=== PATIENT | female | born 1985 | race American Indian/Alaskan Native ===

== ENCOUNTER 2018-02-06 14:41 | Outpatient (CLI) | payer MEDICAID ==
[2018-02-06 16:06] LABS: Bilirubin,Urine NEG (Negative); Blood,Urine NEG (Negative); Color,Urine Yellow (Yellow); Mucus,Urine 3+ /HPF; Urobilinogen,Urine < 2.0 mg/dL (<2.0)
[2018-02-06 16:07] VITALS: BP 124/65
[2018-02-06 16:08] LABS: Hematocrit 33.6 % (30.3-42.9); Hemoglobin 11.4 gm/dl (10.1-14.3); Mean Corpuscular HGB Conc 34 % (30-34); Mean Corpuscular Hemoglobin 29 pg (28-32); Mean Corpuscular Volume 87 fl (79-97); Platelet Count 299 K/mm3 (140-440); Red Blood Count 3.88 M/mm3 (3.65-5.03); Red Cell Distribution Width 14.1 % (13.2-15.2)
[2018-02-06 18:25] LABS: Alanine Aminotransferase 12 units/L (7-56)
== END 2018-02-06 16:16 | disposition home or self-care (01) ==
LOC: TRG 14:41
PROVIDERS: ATTEND Obstetrics & Gynecology
DX: O47.1 False labor at or after 37 completed weeks of gestation (principal); O99.513 Diseases of the respiratory system complicating pregnancy, third trimester; O99.213 Obesity complicating pregnancy, third trimester; J45.909 Unspecified asthma, uncomplicated; Z3A.38 38 weeks gestation of pregnancy; F17.210 Nicotine dependence, cigarettes, uncomplicated; Z91.018 Allergy to other foods
CPT/HCPCS: 36415; 59025; 81001; 82565; 83615; 84450; 84460; 84550; 85027

== ENCOUNTER 2018-02-08 12:56 | Outpatient (CLI) | payer MEDICAID ==
[2018-02-08 14:24] VITALS: BP 155/74
== END 2018-02-08 14:44 | disposition home or self-care (01) ==
LOC: TRG 12:56
PROVIDERS: ATTEND Obstetrics & Gynecology
DX: O47.1 False labor at or after 37 completed weeks of gestation (principal); Z3A.38 38 weeks gestation of pregnancy
CPT/HCPCS: 59025

== ENCOUNTER 2018-02-08 23:54 | Inpatient (IN) | payer MEDICAID ==
[2018-02-09] MEDS ORDERED: STADOL IV PRN (00:43)
[2018-02-09] MEDS ORDERED: PITOCin/NS 20 UNIT/1000ML DRIP 20 UNITS/1,000 ML BAG IV SCH ×2 (01:00→19:51)
[2018-02-09 01:17] LABS: Hematocrit 34.2 % (30.3-42.9); Hemoglobin 11.7 gm/dl (10.1-14.3); Mean Corpuscular HGB Conc 34 % (30-34); Mean Corpuscular Hemoglobin 29 pg (28-32); Mean Corpuscular Volume 85 fl (79-97); Platelet Count 288 K/mm3 (140-440); Red Blood Count 4.02 M/mm3 (3.65-5.03); Red Cell Distribution Width 14.2 % (13.2-15.2)
[2018-02-09] MEDS: SUBLIMAZE IV PRN ×2 (01:22→03:48)
[2018-02-09] MEDS: LACTATED RINGERS 1,000 ML IV SCH ×4 (01:24→09:30)
[2018-02-09] MEDS ORDERED: APRESOLINE IV ONE ×2 (02:00→18:00)
--- NOTE | 2018-02-09 04:52 | History and Physical Report ---
History of Present Illness Date of examination: 02/09/18 Date of admission: 02/09/18 01:08 Chief complaint: I'm having contractions History of present illness: Patient is a 32 year old who presents tonight in active labor with dilation to 5cm. Patient has had an uncomplicated course except for chronic hypertension. She is GBS negative. She has had 2 previous c-sections and 2 successful vbacs. Past History Past Medical History: hypertension Past Surgical History: section Family/Genetic History: heart disease, hypertension Social history: - Obstetrical History Expected Date of Delivery: 02/14/18 Actual Gestation: 39 Week(s) 2 Day(s) : 5 Para: 4 Number of Living Children: 4 Medications and Allergies Allergies Allergy/AdvReac Type Severity Reaction Status Date / Time apple Allergy Severe Swelling Verified 02/08/18 13:03 Androgenic Anabolic Steroid Allergy Anaphylaxis Verified 03/31/15 06:43 Home Medications Medication Instructions Recorded Confirmed Last Taken Type Plus Tablet 1 tab PO DAILY 04/01/15 02/09/18 02/09/18 History Acetaminophen/Diphenhydramine 1 each PO PRN 02/09/18 02/09/18 02/08/18 22:00 History [Tylenol Pm Ex-Strength Caplet] Active Meds: Active Medications Butorphanol Tartrate (Stadol) 2 mg IV Q2H PRN PRN Reason: Labor Pain Fentanyl (Sublimaze) 100 mcg IV Q2H PRN PRN Reason: Labor Pain Last Admin: 02/09/18 03:48 Dose: 100 mcg Lactated Ringer's (Lactated Ringers) 1,000 mls @ 125 mls/hr IV DIRECT SHEYLA Last Admin: 02/09/18 01:24 Dose: 125 mls/hr Oxytocin/Sodium Chloride (Pitocin/Ns 20 Unit/1000ml Drip) 20 units in 1,000 mls @ 125 mls/hr IV DIRECT SHEYLA Review of Systems All systems: negative Genitourinary: contractions - Vital Signs Vital signs: Vital Signs Pulse Pulse Ox 88 97 02/09/18 00:14 02/09/18 00:14 Temp Pulse Resp BP Pulse Ox 98.2 F 85 18 179/81 98 02/09/18 01:07 02/09/18 04:42 02/09/18 03:48 02/09/18 04:37 02/09/18 04:42 - Physical Exam Breasts: Cardiovascular: Regular rate, Normal S1, Normal S2 Lungs: Positive: Clear to auscultation, Normal air movement Abdomen: Positive: normal appearance, soft, normal bowel sounds. Negative: distention, tenderness Vulva: both: normal Vagina: Positive: normal moisture. Negative: discharge Cervix: Negative: lesion, discharge Uterus: Positive: normal size, normal contour Adnexa: both: normal Anus/Rectum: Positive: normal perianal skin, heme negative. Negative: rectal mass, hemorrhoids Extremities: Deep Tendon Reflex Grade: Normal +2 - Obstetrical Cervical Dilatation: 5 Cervical Effacement Percentage: 90 station: -2 Uterine Contraction Pattern: Regular Uterine Tone Measurement Phase: Contraction Uterine Contraction Intensity: Moderate Results Result Diagrams: 02/09/18 00:38 Abnormal lab results 02/09/18 Range/Units 00:38 WBC 12.6 H (4.5-11.0) K/mm3 All other labs normal. Assessment and Plan IUP at 39.2 weeks in labor. Admit for same. Pt is GBS negative. Anticipate .
[2018-02-09] MEDS ORDERED: NARCAN 2 MG/2 ML IV PRN (07:26)
--- NOTE | 2018-02-09 07:26 | Anesthesia Consultation ---
Anesthesia Consult and Med Hx Date of service: 02/09/18 - Airway Anesthetic Teeth Evaluation: Good ROM Head & Neck: Adequate Mental/Hyoid Distance: Adequate Mallampati Class: Class II Intubation Access Assessment: Probably Good - Pulmonary Exam CTA: Yes - Cardiac Exam Cardiac Exam: RRR - Pre-Operative Health Status ASA Pre-Surgery Classification: ASA2 Proposed Anesthetic Plan: Epidural - Pulmonary Hx Smoking: Yes Hx Asthma: Yes (last attack months ago) COPD: No Hx Pneumonia: No - Cardiovascular System Hx Hypertension: Yes (2013) - Central Nervous System Hx Seizures: No Hx Psychiatric Problems: No - Endocrine Hx Renal Disease: No Hx End Stage Renal Disease: No Hx Hypothyroidism: No Hx Hyperthyroidism: No - Hematic Hx Anemia: Yes (In ) Hx Sickle Cell Disease: No - Other Systems Hx Alcohol Use: No Hx Obesity: Yes (morbid, BMI 43)
[2018-02-09] MEDS ORDERED: fentaNYL-BUPIV 2 MCG/ML-0.125% 200 MCG/100 ML BAG EPIDURAL SCH (08:00)
[2018-02-09] MEDS ORDERED: PITOCin/NS 30 UNIT/500ML 30 UNITS/500 ML BAG IV SCH (09:00)
[2018-02-09] MEDS ORDERED: BICITRA ONE (14:41)
[2018-02-09] MEDS ORDERED: REGLAN ONE (14:41)
[2018-02-09] MEDS ORDERED: PEPCID IV ONE (14:41)
[2018-02-09] MEDS ORDERED: WATER FOR IRRIG STERILE IR ONE (14:50)
[2018-02-09] MEDS ORDERED: NACL 0.9% IR ONE (14:50)
[2018-02-09] MEDS ORDERED: XYLOCAINE MPF 2% ONE ×4 (14:54)
[2018-02-09] MEDS ORDERED: TORADOL ONE (14:54)
[2018-02-09] MEDS ORDERED: VERSED ONE (15:47)
--- NOTE | 2018-02-09 16:26 | Procedure Note ---
OB Delivery Note - Delivery Date of Delivery: 02/09/18 Surgeon: MARINE ECKERT Estimated blood loss: other (800) - Section Preop diagnosis: repeat , arrest of dilation, nonreassuring FHR tracing Postop diagnosis: same section procedure: repeat low transverse Disposition: PACU Narrative: see op report - A at 1 minute: 1 at 5 minutes: 5 (10 minute 8) Gender: Male
--- NOTE | 2018-02-09 16:37 | Operative Report ---
Operative Report Operative Report: The operative report for patient Karli Jaquez Date of service 02/09/2019 Preoperative diagnosis: Intrauterine at 39 weeks 2. bradycardia 3. Failed Postoperative diagnosis: Same Procedure: Repeat low transverse section Surgeon: Dr. Taylor Watkins EBL: 800 mL Urine output: 200 but bloody prior to start of the procedure IV fluids: 1100 Findings: Viable male in the vertex occiput posterior position. Weight 7 lbs. 4 oz. 3299 g Apgars 2, 5 and 8. Extensive pelvic adhesions Specimens: None Complications: None Procedure: The patient was admitted to the OR with IV running and in place. She was properly identified as herself. Her spinal had been placed in the room and she was already under the effects of anesthesia upon entry into the OR. She was placed in the dorsal supine position with a leftward tilt. A Mathews catheter was inserted. She was then prepped and draped in the normal sterile fashion. An Allis test was used to confirm adequate anesthesia. Once confirmed , the incision was made with the scalpel and carried to the underlying fascia using the scalpel and the Bovie. The fascia was incised in the midline and incision was extended bilaterally using the curved Sneed scissors. The fascia was then dissected from the underlying rectus muscles in a series of sharp and blunt dissection using the Sneed scissors. Muscles were in the in the midline sharply using Metzenbaum scissors and the peritoneum was entered into bluntly using the surgeon's fingers. A bladder blade was then placed into the incision to protect the bladder. Following this the bladder flap was created. Hysterotomy incision was then made in the scalpel. Upon uterine entry, the amniotic sac was ruptured for clear fluid. The was then delivered in the occiput [posterior] position. His mouth and nose were suctioned on the field. The cord was clamped and cut and he was handed to the waiting NICU personnel. The uterus was then exteriorized and cleared of all clots and debris. The hysterotomy incision was then closed in a running locked fashion using 0 Vicryl. The abdomen was then copiously irrigated with warm normal saline. Following this the uterus was replaced into the abdominal cavity. At this point the muscles were reapproximated in the midline using individual sutures of 0 Vicryl. Following this the fascia was closed in a running fashion using 0 Vicryl. Tissue was then copiously irrigated. A retention suture was placed in the subcuticular fat. Skin was closed in a running fashion using 3-0 Monocryl. The sponge lap needle and instrument counts were correct 2. The patient tolerated the procedure well. She was taken to recovery in stable condition.
[2018-02-09] MEDS: MORPHINE IV PRN ×3 (17:29→23:21)
[2018-02-09] MEDS ORDERED: PHENERGAN PR PRN (19:51)
[2018-02-09] MEDS ORDERED: MORPHINE PCA 30MG/30ML IV SCH (19:51)
[2018-02-09] MEDS ORDERED: NARCAN 0.4 MG/1 ML IV PRN ×2 (19:51)
[2018-02-09] MEDS ORDERED: TUCKS PAD TP PRN (19:51)
[2018-02-09] MEDS ORDERED: BENADRYL IV PRN (19:51)
[2018-02-09] MEDS ORDERED: SODIUM CHLORIDE FLUSH SYRINGE 10 ML IV PRN (19:51)
[2018-02-09] MEDS ORDERED: D5LR 1,000 ML IV SCH (19:51)
[2018-02-09] MEDS ORDERED: LANSINOH TP PRN (19:51)
[2018-02-09] MEDS: PROCARDIA XL PO SCH (22:24)
[2018-02-10] MEDS: MORPHINE IV PRN (04:19)
[2018-02-10 07:02] LABS: Hematocrit 26.4 % (30.3-42.9); Hemoglobin 8.8 gm/dl (10.1-14.3)
[2018-02-10] MEDS: FEOSOL PO SCH (10:25)
[2018-02-10] MEDS: PERCOCET 5/325 PO PRN ×3 (10:25→22:14)
[2018-02-10] MEDS: PROCARDIA XL PO SCH ×2 (12:00)
[2018-02-10] MEDS: MYLICON PO PRN ×2 (16:20→22:19)
[2018-02-10] MEDS: MILK OF MAGNESIA PO PRN (20:26)
[2018-02-11] MEDS: PERCOCET 5/325 PO PRN ×3 (06:07→17:43)
[2018-02-11] MEDS: MILK OF MAGNESIA PO PRN (08:25)
[2018-02-11] MEDS: PROCARDIA XL PO SCH (10:00)
[2018-02-11] MEDS: FEOSOL PO SCH (11:40)
--- NOTE | 2018-02-11 14:23 | Progress Note ---
Assessment and Plan POD 2 s/p repeat ltcs for failed . Patient doing well. Plan for discharge on tomorrow Subjective - Subjective Date of service: 02/11/18 Interval history: Patient is a 32 year old who presents tonight in active labor with dilation to 5cm. Patient has had an uncomplicated course except for chronic hypertension. She is GBS negative. She has had 2 previous c-sections and 2 successful vbacs. Patient reports: appetite normal, voiding normally, pain well controlled, ambulating normally : doing well Objective - Vital Signs Latest vital signs: Vital Signs Temp Pulse Resp BP BP Pulse Ox 02/11/18 08:15 98.4 F 84 20 110/61 02/11/18 00:00 98.2 F 101 H 20 116/55 02/10/18 16:06 98.6 F 98 H 20 128/68 97 Intake and Output 02/10/18 02/11/18 02/11/18 22:59 06:59 14:59 Intake Total 580 480 Balance 580 480 Intake: Oral 580 480 Other: Total, Intake Amount 240 120 # Voids Void 1 1 # Bowel Movements 0 - Exam Breasts: Present: deferred Cardiovascular: Present: Regular rate, Normal S1, Normal S2 Lungs: Present: Clear to auscultation, Normal air movement Abdomen: Present: normal appearance, soft Uterus: Present: normal, firm Extremities: Present: normal Deep Tendon Reflex Grade: Normal +2 Incision: Present: normal, dry, intact
--- NOTE | 2018-02-11 14:26 | Discharge Summary ---
Providers - Providers Date of Admission: 02/09/18 01:08 Date of discharge: 02/12/18 Attending physician: MARINE ECKERT Primary care physician: MARINE ECKERT Hospitalization Reason for admission: active labor Delivery: Procedure: repeat low transverse Incision: normal, dry Other procedures: none complications: none Discharge diagnosis: IUP at term delivered baby: male Hospital course: unremarkable Condition at discharge: Good Disposition: DC-01 TO HOME OR SELFCARE Plan - Discharge Medications Prescriptions: Docusate Sodium [Colace] 100 mg PO BID PRN #60 capsule PRN Reason: Constipation Ibuprofen [Motrin] 800 mg PO Q8HR PRN #40 tablet PRN Reason: Pain, Moderate (4-6) NIFEdipine XL [Procardia Xl] 90 mg PO BID #60 tablet Oxycodone HCl/Acetaminophen [Percocet 7.5/325 mg] 1 each PO Q6HR PRN #40 tablet PRN Reason: Pain - Provider Discharge Summary Activity: routine, no sex for 6 weeks, no heavy lifting 4 weeks, no strenuous exercise Diet: routine Instructions: routine Additional instructions: [] Smoking cessation referral if applicable(refer to patient education folder for contact #) [] Refer to [facility]'s [facility] Booklet Call your doctor immediately for: * Fever > 100.5 * Heavy vaginal bleeding ( >1 pad per hour) * Severe persistent headache * Shortness of breath * Reddened, hot, painful area to leg or breast * Drainage or odor from incision. * Keep incision clean and dry at all times and follow doctor's instructions regarding bathing/showering - Follow up plan Follow up: MARINE ECKERT MD [Primary Care Provider] - 14 Days
[2018-02-12] MEDS: MOTRIN PO PRN ×2 (00:51→15:21)
[2018-02-12] MEDS: PROCARDIA XL PO SCH ×2 (00:51→10:55)
[2018-02-12] MEDS: FEOSOL PO SCH (10:53)
[2018-02-12] MEDS: PERCOCET 5/325 PO PRN (11:00)
[2018-02-12 16:22] VITALS: BP 127/77
== END 2018-02-12 17:30 | disposition home or self-care (01) | DRG 765 ==
LOC: TRG 23:54 → LD 02-09 01:08 → OB 02-09 19:04
PROVIDERS: ADMIT Obstetrics & Gynecology; ATTEND Obstetrics & Gynecology
PROC: 10D00Z1 Extraction of Products of Conception, Low, Open Approach (ICD-10-PCS; principal; 2018-02-09)
DX: O34.211 Maternal care for low transverse scar from previous cesarean delivery (principal); Z68.41 Body mass index [BMI] 40.0-44.9, adult; O10.92 Unspecified pre-existing hypertension complicating childbirth; O75.0 Maternal distress during labor and delivery; Z3A.39 39 weeks gestation of pregnancy; Z37.0 Single live birth; E66.01 Morbid (severe) obesity due to excess calories; Z71.3 Dietary counseling and surveillance; Z88.8 Allergy status to other drugs, medicaments and biological substances; Z91.018 Allergy to other foods; Z82.49 Family history of ischemic heart disease and other diseases of the circulatory system; O99.52 Diseases of the respiratory system complicating childbirth; J45.909 Unspecified asthma, uncomplicated; O99.214 Obesity complicating childbirth; O76 Abnormality in fetal heart rate and rhythm complicating labor and delivery; O66.41 Failed attempted vaginal birth after previous cesarean delivery
CPT/HCPCS: 36415; 85014; 85018; 85027; 86592; 86850; 86900; 86901; 88307; 99211; A6250; C1765; G0463; J0360; J0595; J1885; J2250; J2270; J2590; J2765; J3010; J7120; J7121